=== PATIENT | female | born 1990 | race Caucasian/White ===

== ENCOUNTER 2016-07-28 15:32 | Emergency (ER) | payer OTHER, BC, MEDICAID ==
[2016-07-28] MEDS ORDERED: DIPHTH,PERTUSS(ACELL),TET VAC 0.5 ML VIAL IM V ONE (16:26)
[2016-07-28] MEDS ORDERED: ACETAMINOPHEN 500 MG TABLET ONE (16:26)
--- NOTE | 2016-07-28 17:02 | RAD ---
EXAMINATION:FOOT LEFT 3 VIEWS CLINICAL INDICATION: Injury to top of left foot. Laceration above the distal fifth metatarsal. Initial encounter. COMPARISONS:none FINDINGS: No fracture or focal destruction is identified. Joint space relationships of the foot are maintained. Well-corticated osteophyte is noted at the base of the second metatarsal. Mild soft tissue swelling is noted adjacent to the fifth metatarsal phalangeal joint. No radiopaque foreign body is appreciated. IMPRESSION: 1. No evidence of displaced fracture or focal destruction involving the left foot. 2. Small osteophyte base of the left second metatarsal. 3. Soft tissue swelling adjacent to the fifth metatarsal phalangeal joint.
[2016-07-28] MEDS ORDERED: SULFAMETHOXAZOLE 800 MG/TRIMETHOPRIM 160 MG TABLET ONE (17:57)
== END 2016-07-28 18:10 | disposition home or self-care (01) ==
LOC: ED 15:32
DX: S91.312A Laceration without foreign body, left foot, initial encounter (principal); Z23 Encounter for immunization; W31.89XA Contact with other specified machinery, initial encounter; Y92.69 Other specified industrial and construction area as the place of occurrence of the external cause; Y99.0 Civilian activity done for income or pay
CPT/HCPCS: 90715; 73630; 99283 ×2; 12002 ×2; A9270 ×2